=== PATIENT | male | born 1960 | race Two or more races ===

== ENCOUNTER 2019-03-22 01:40 | Emergency (ER) | payer OTHER ==
[2019-03-22 02:13] VITALS: BMI 31.7
--- NOTE | 2019-03-22 02:21 | PDOC ---
History of Present Illness - General Chief Complaint: Pain, Acute Stated Complaint: PAIN Time Seen by Provider: 03/22/19 02:21 - History of Present Illness Initial Comments: 58 year old male with PMH of GERD (H. Pylori positive x 2 despite therapy), diabetes, and HTN presenting with severe epigastric pain nearly daily for the past 4 moths that has worsened today. Patient states that he has seen Dr. Martínez and Dr. Rubio but none of the antibiotics that he's used have completely resolved his symptoms. He was scoped by Dr. Martínez one week prior and states it did not demonstrate any ulcer. He does drink coffee and smokes hookah frequently but denies alcohol or spicy food ingestion. Denies fevers, chills, nausea, vomiting, diarrhea, or other symptoms. 03/22/19 06:29 Past History - Past Medical History Allergies/Adverse Reactions: Allergies Allergy/AdvReac Type Severity Reaction Status Date / Time No Known Allergies Allergy Verified 03/22/19 02:13 Home Medications: Ambulatory Orders Sitagliptin Phos/Metformin HCl [Janumet 50-1,000 mg Tablet] 1 each PO DAILY 09/09 Sitagliptin Phos/Metformin HCl [Janumet 50-500 mg Tablet] 1 each PO DAILY Disorders: Yes (freq UTI's) - Suicide/Smoking/Psychosocial Hx Smoking History: Never smoked Hx Alcohol Use: No Drug/Substance Use Hx: No Review of Systems - Review of Systems Constitutional: No: Chills, Diaphoresis, Fever, Loss of Appetite HEENTM: No: Eye Pain, Blurred Vision, Tearing Respiratory: No: Cough, Orthopnea, Shortness of Breath Cardiac (ROS): No: Chest Pain, Edema, Irregular Heart Rate ABD/GI: Yes: Indigestion. No: Diarrhea, Nausea, Vomiting : No: Burning, Dysuria, Discharge, Frequency Musculoskeletal: No: Back Pain, Gout, Joint Pain, Joint Swelling Integumentary: No: Bruising, Lesions, Lumps Neurological: No: Headache, Numbness, Paresthesia Psychiatric: No: Anxiety, Depression, Frequent Crying Hematologic/Lymphatic: No: Anemia, Blood Clots, Easy Bleeding *Physical Exam - Vital Signs Last Vital Signs Temp Pulse Resp BP Pulse Ox 97.9 F 89 18 134/91 99 03/22/19 01:40 03/22/19 01:40 03/22/19 01:40 03/22/19 01:40 03/22/19 01:40 - Physical Exam General Appearance: Yes: Nourished, Appropriately Dressed. No: Apparent Distress HEENT: positive: EOMI, MIKA, Normal ENT Inspection, Normal Voice Neck: positive: Trachea midline, Normal Thyroid, Supple. negative: Tender, Rigid Respiratory/Chest: positive: Lungs Clear, Normal Breath Sounds, Respiratory Distress. negative: Chest Tender, Accessory Muscle Use Cardiovascular: positive: Regular Rhythm, Regular Rate Gastrointestinal/Abdominal: positive: Normal Bowel Sounds, Flat, Soft. negative : Tender Lymphatic: negative: Adenopathy, Tenderness Musculoskeletal: positive: Normal Inspection. negative: Decreased Range of Motion Extremity: positive: Normal Capillary Refill, Normal Inspection, Normal Range of Motion. negative: Tender Integumentary: positive: Normal Color, Dry, Warm Neurologic: positive: Fully Oriented, Alert, Normal Mood/Affect, Normal Response , Motor Strength 5/5 ED Treatment Course - LABORATORY CBC & Chemistry Diagram: 03/22/19 03:00 03/22/19 03:00 Medical Decision Making - Medical Decision Making 58 year old male with PMH of refractory GERD in the setting of H. Pylori infection presenting with epigastric pain despite home antacid therapy usage. Abdomen mildly tender in epigastrium and all labs wnl. EKG also no demonstrating acute ischemia - rate 82, IN interval 150, QRS 98, QTc 448, with normal axis but tw flattening in III and TWI in avr, v1, and v2 but unchanged from previous. Symptoms completely resolved after carafate and IV famotidine. Patient sent home with return precautions and GI follow up instructions. 03/22/19 06:37 *DC/Admit/Observation/Transfer Diagnosis at time of Disposition: GERD (gastroesophageal reflux disease) Qualifiers: Esophagitis presence: with esophagitis Qualified Code(s): K21.0 - Gastro- esophageal reflux disease with esophagitis - Discharge Dispostion Disposition: HOME Condition at time of disposition: Improved Decision to Admit order: No - Referrals Referrals: Dimitrios Rubio MD [Primary Care Provider] - Cameron Martínez MD [Staff Physician] - - Patient Instructions Printed Discharge Instructions: DI for Gastroesophageal Reflux Disease (GERD), GERD Diet Additional Instructions: Pleas acid smoking, fried foods, soda, coffee, and alcohol. Please follow up with your GI doctor. Please return to the ED if you have new or worsening symptoms. - Post Discharge Activity
[2019-03-22] MEDS ORDERED: FAMOTIDINE 20 MG/50 ML IVPB 20 MG/50 ML MG IVPB ONE ×2 (02:36→03:24)
[2019-03-22] MEDS ORDERED: SUCRALFATE 1 GM/10 ML UNIT DOSE CUPS PO ONE (02:36)
[2019-03-22 03:16] LABS: BASO % 1.1 % (0-2.0); EOS % 4.1 % (0-4.5); HEMATOCRIT 48.7 % (35.4-49); HEMOGLOBIN 17.3 GM/dL (11.7-16.9); LYMPH % 25.9 % (8-40); MCH 31.3 pg (25.7-33.7); MCHC 35.5 g/dl (32.0-35.9); MEAN CELL VOLUME 88.1 fl (80-96); MEAN PLT VOLUME 9.9 fl (7.5-11.1); MONO % 8.9 % (3.8-10.2); PLATELET COUNT 206 K/MM3 (134-434); RBC 5.52 M/mm3 (4.00-5.60); RDW 13.1 % (11.9-15.9)
[2019-03-22] MEDS ORDERED: SUCRALFATE 1 GM/10 ML UNIT DOSE CUPS ONE (03:23)
[2019-03-22 03:55] LABS: ALBUMIN 3.7 g/dl (3.4-5.0); BILIRUBIN,TOTAL 0.4 mg/dL (0.2-1); CALCIUM 9.3 mg/dL (8.5-10.1); CREATININE 1.2 mg/dL (0.55-1.3); TOT PROT 7.3 g/dl (6.4-8.2)
[2019-03-22 04:53] VITALS: BP 136/84; PULSE 86; TEMP 98.1
--- NOTE | 2019-03-22 05:31 | PDOC ---
Attending Attestation - Resident Resident Name: Tino Cade - ED Attending Attestation I have performed the following: I have examined & evaluated the patient, The case was reviewed & discussed with the resident, I agree w/resident's findings & plan - HPI HPI: 03/22/19 06:52 58-year-old male with chronic epigastric pain now worse. There is no associated vomiting. - Physicial Exam PE: 03/22/19 06:53 agree with resident exam - Medical Decision Making 03/22/19 06:54 58-year-old male with chronic intermittent epigastric pain Labs were unremarkable including troponin EKG showed no acute ST changes Patient improved after antacids, he is now asymptomatic and ready to go home He will follow up with primary care and gastroenterology.
--- NOTE | 2019-03-22 13:59 | EKG ---
Test Reason : Blood Pressure : / mmHG Vent. Rate : 082 BPM Atrial Rate : 082 BPM P-R Int : 150 ms QRS Dur : 098 ms QT Int : 384 ms P-R-T Axes : 065 -06 045 degrees QTc Int : 448 ms NORMAL SINUS RHYTHM POSSIBLE LEFT ATRIAL ENLARGEMENT INFERIOR INFARCT , AGE UNDETERMINED ABNORMAL ECG WHEN COMPARED WITH ECG OF 10-OCT-2009 17:06, NO SIGNIFICANT CHANGE WAS FOUND Confirmed by TISHA WHITAKER, FLORIDALMA ([id number]) on 03/22/2019 1:59:23 PM Referred By: Confirmed By:FLORIDALMA GILES MD
== END 2019-03-22 05:52 | disposition home or self-care (01) ==
LOC: JER 01:40
PROC: 3E033GC Introduction of Other Therapeutic Substance into Peripheral Vein, Percutaneous Approach (ICD-10-PCS; principal; 2019-03-22)
DX: K21.0 Gastro-esophageal reflux disease with esophagitis (principal); B96.81 Helicobacter pylori [H. pylori] as the cause of diseases classified elsewhere; I10 Essential (primary) hypertension; E11.9 Type 2 diabetes mellitus without complications; Z79.84 Long term (current) use of oral hypoglycemic drugs
CPT/HCPCS: 36415; 71045-TC-FY; 80053; 82150; 82550; 83690; 84484; 85025; 93005; 93010; 99283-25